=== PATIENT | female | born 1995 | race Asian ===

== ENCOUNTER 2016-12-12 16:26 | Emergency (ER) | payer OTHER ==
[2016-12-12] MEDS ORDERED: NS 1,000 ML IV ONE (16:31)
--- NOTE | 2016-12-12 16:34 | EDPHY ---
H & P Time Seen by Provider: 12/12/16 16:31 HPI/ROS: Chief complaint. Status epilepticus HPI. 19-year-old female here by EMS after being found in a dormitory bathroom actively seizing. Per EMS she has been seizing for at least 15 minutes. She apparently has a history of seizure disorder that is may be stress related. It is unknown whether she takes any medication for this. EMS was unable to establish an IV and gave her 5 mg of Valium IM before arrival. Patient has a laceration to the left side of her head. Blood sugar 116 per EMS ROS Unable as patient is currently nonverbal Past Medical/Surgical History: Unknown other than apparent stress related seizure disorder Social History: Unknown other than likely [employer] student Physical Exam: General Appearance: Arousable well-developed female nonverbal moderate distress vital signs are stable Eyes: Pupils are equal round reactive but upward gaze bilaterally. ENT, mouth without obvious evidence of trauma. Respiratory: There are no retractions, lungs are clear to auscultation. Cardiovascular: Regular rate and rhythm. Gastrointestinal: Abdomen is soft and nontender, no masses, bowel sounds normal. Neurological: Opens eyes to verbal stimuli Skin: Laceration left scalp Musculoskeletal: Cervical spine is immobilized per EMS Extremities symmetrical, full range of motion. Bruising and abrasions to the right lower extremity Psychiatric: Patient is nonverbal but not seizing Constitutional: Initial Vital Signs Temperature (C) 36.8 C 12/12/16 16:39 Heart Rate 132 H 12/12/16 16:39 Respiratory Rate 18 12/12/16 16:39 Blood Pressure 97/56 L 12/12/16 16:39 O2 Sat (%) 100 12/12/16 16:39 O2 Delivery Mode Nasal Cannula O2 (L/minute) 3 Allergies/Adverse Reactions: Unable to Assess Allergy (Unverified 12/12/16 16:39) Home Medications: Medication Instructions Recorded Unobtainable 12/12/16 Medical Decision Making - Diagnostics Imaging: CT head without contrast reviewed by me and discussed with Dr. Thomas shows no skull fracture intracranial bleeding. Cervical spine shows no acute injury X-rays of both tib fib bilaterally interpreted by me is normal Procedures: IV normal saline, monitor, seizure precautions ED Course/Re-evaluation: Serial evaluations patient is crying but not verbal. No further seizure activity 6:00 p.m. patient is awake and crying and still not really able to talk although she tells me she does not have any neck pain. The cervical collar is removed after her normal cervical CT with palpation of her neck and the patient nods that no it does not hurt gentle palpation as well as range of motion elicits no pain or discomfort and so the cervical spine precautions are discontinued by me Patient complains of pain to her right leg. We will x-ray the leg I consulted Dr. Montes and he sees the patient in the emergency department. Both of us also discussed the patient's care with Dr. Saeed neurologist. The concern is that the patient could be still seizing. She will be given a g of Keppra. At hospitalist and neurologist request we will arrange transfer to [facility] where she can have continuous EEG monitoring in the ICU I consulted and discussed case with Dr.Caitlyn Longo, neurologist at [facility]. She agrees with treatment plan and agrees to accept patient in transfer. The parents eventually come to the emergency department and tell me that the patient does have a seizure disorder and is on some kind of medication but they do not know what. The patient is re-evaluated again at this point and she still does not speak or really interact with her parents. They also tell me that patient has [employer] insurance I spoke with [facility] and they are fine with the plan of transferring the patient to [facility] Differential Diagnosis: Apparent status epilepticus in a patient with known seizure disorder. It is unclear the medication the patient takes. The concern is the patient is continuing to be in status and consultation by our neurologist here recommends continuous EEG monitoring which the neurologist at [facility] agrees with Critical Care Time: Critical care time exclusive procedures 45 minutes - Data Points Laboratory Results: Laboratory Results 12/12/16 16:37 12/12/16 16:37 12/12/16 12/12/16 12/12/16 18:55 17:00 16:37 WBC 8.25 10^3/uL (3.80-9.50) RBC 4.82 10^6/uL (4.18-5.33) Hgb 11.9 L g/dL (12.6-16.3) Hct 38.7 % (38.0-47.0) MCV 80.3 L fL (81.5-99.8) MCH 24.7 L pg (27.9-34.1) MCHC 30.7 L g/dL (32.4-36.7) RDW 15.5 H % (11.5-15.2) Plt Count 307 10^3/uL (150-400) MPV 11.8 H fL (8.7-11.7) Neut % (Auto) 49.3 % (39.3-74.2) Lymph % (Auto) 41.5 % (15.0-45.0) [place] % (Auto) 6.3 % (4.5-13.0) Eos % (Auto) 0.6 % (0.6-7.6) Baso % (Auto) 0.6 % (0.3-1.7) Nucleat RBC Rel Count 0.0 % (0.0-0.2) Absolute Neuts (auto) 4.07 10^3/uL (1.70-6.50) Absolute Lymphs (auto) 3.42 H 10^3/uL (1.00-3.00) Absolute Monos (auto) 0.52 10^3/uL (0.30-0.80) Absolute Eos (auto) 0.05 10^3/uL (0.03-0.40) Absolute Basos (auto) 0.05 10^3/uL (0.02-0.10) Absolute Nucleated RBC 0.00 10^3/uL (0-0.01) Immature Gran % 1.7 H % (0.0-1.1) Immature Gran # 0.14 H 10^3/uL (0.00-0.10) PT 15.7 H SEC REJ (12.0-15.0) INR 1.25 H REJ (0.83-1.16) APTT 25.0 SEC REJ (23.0-38.0) Sodium 143 mEq/L (134-144) Potassium 3.6 mEq/L (3.5-5.2) Chloride 108 mEq/L (97-110) Carbon Dioxide 21 L mEq/l (22-31) Anion Gap 14 mEq/L (8-16) BUN 9 mg/dL (7-23) Creatinine 0.8 mg/dL (0.6-1.0) Estimated GFR > 60 Glucose 98 mg/dL (70-100) Calcium 8.8 mg/dL (8.5-10.4) Beta HCG, Qual NEGATIVE Urine Opiates Screen NEGATIVE (NEGATIVE) Urine Barbiturates NEGATIVE (NEGATIVE) Ur Phencyclidine Scrn NEGATIVE (NEGATIVE) Ur Amphetamine Screen NEGATIVE (NEGATIVE) U Benzodiazepines Scrn NEGATIVE (NEGATIVE) Urine Cocaine Screen NEGATIVE (NEGATIVE) U Marijuana (THC) Screen NEGATIVE (NEGATIVE) Medications Given: Discontinued Medications Sodium Chloride (Ns) 1,000 mls @ 0 mls/hr IV EDNOW ONE PRN Reason: Wide Open Stop: 12/12/16 16:32 Last Admin: 12/12/16 16:46 Dose: 1,000 mls Levetiracetam 1,000 mg/ Sodium (Chloride) 110 mls @ 440 mls/hr IV EDNOW ONE Stop: 12/12/16 18:32 Last Admin: 12/12/16 18:55 Dose: 110 mls Lorazepam (Ativan Injection) 1 mg IVP EDNOW ONE Stop: 12/12/16 16:47 Last Admin: 12/12/16 16:47 Dose: 1 mg Departure - Departure Disposition: Acute Care Hospital [facility] Clinical Impression: Status epilepticus Condition: Fair Referrals: NONE *PRIMARY CARE P,. [Primary Care Provider] - As per Instructions
[2016-12-12] MEDS ORDERED: LORazepam 2 MG/ML INJ ONE (16:42)
[2016-12-12] MEDS ORDERED: LORazepam 2 MG/ML INJ IVP ONE (16:46)
[2016-12-12 16:48] LABS: % IMMATURE GRANULYOCYTES 1.7 % (0.0-1.1); ABSOLUTE IMMATURE GRANULOCYTES 0.14 10^3/uL (0.00-0.10); ADD DIFF? NO; ADD MORPH? NO; ADD SCAN? NO; ATYPICAL LYMPHOCYTE FLAG 0 (0-99); FRAGMENT RBC FLAG 20 (0-99); HEMATOCRIT 38.7 % (38.0-47.0); HEMOGLOBIN 11.9 g/dL (12.6-16.3); LEFT SHIFT FLG 10 (0-99); LIPEMIA HEMOLYSIS FLAG 80 (0-99); MEAN CELL HEMOGLOBIN 24.7 pg (27.9-34.1); MEAN CELL HEMOGLOBIN CONCENTR. 30.7 g/dL (32.4-36.7); MEAN CELL VOLUME 80.3 fL (81.5-99.8); MEAN PLATELET VOLUME 11.8 fL (8.7-11.7); PLATELET CLUMPS FLAG 0 (0-99); PLATELET COUNT 307 10^3/uL (150-400); RED BLOOD CELL COUNT 4.82 10^6/uL (4.18-5.33); RED CELL DISTRIBUTION WIDTH 15.5 % (11.5-15.2)
--- NOTE | 2016-12-12 17:00 | DX ---
Portable Chest on December 12, 2016 at 1642 hours Clinical Indications: Patient found down; no previous studies available for comparison. Findings: Frontal view (only) shows clear lungs and no masses. Heart size and pulmonary vessels blaze ear normal. Hilar and mediastinal contours appear normal. No evidence of pleural effusion. There is no pneumothorax. Osseous structures appear intact. Impression: Portable chest negative for acute abnormality.
[2016-12-12 17:02] LABS: ANION GAP 14 mEq/L (8-16); CALCIUM 8.8 mg/dL (8.5-10.4); CARBON DIOXIDE 21 mEq/l (22-31); CHLORIDE 108 mEq/L (97-110); CREATININE 0.8 mg/dL (0.6-1.0); GLOMERULAR FILTRATION RATE > 60; GLUCOSE 98 mg/dL (70-100); POTASSIUM 3.6 mEq/L (3.5-5.2); SODIUM 143 mEq/L (134-144)
[2016-12-12 17:21] LABS: INR 1.25 (0.83-1.16); PROTIME(PATIENT) 15.7 SEC (12.0-15.0)
--- NOTE | 2016-12-12 17:44 | CT ---
CT Brain (Without Contrast) at 1714 hours History: Seizures, altered mental status, found unconscious. Comparison: None. Technique: Axial computed tomographic images of the brain without contrast. Dose reduction technique s were utilized. Findings: Ventricles, cisterns, and sulci are normal without atrophy, hydrocephalus, midline shift/h erniation, or epidural/subdural hematomas. No acute intraparenchymal hemorrhage, definite infarct, or mass effect. Bone windows demonstrate no displaced fractures. Mild mucosal thickening posterior righ t maxillary sinus. Impression: 1. Normal CT brain without contrast. 2. Mild right maxillary sinus disease. 3.Consider MRI of the brain without and with contrast enhancement, if there is continued clinical con cern. Findings and recommendations discussed with Emergency Department physician, KRYSTYNA MCCRARY at 1740 h our, 12/12/2016. Final report concurs with initial preliminary interpretation.
--- NOTE | 2016-12-12 17:47 | CT ---
CT Scan of the Cervical Spine (Without Contrast) (With Multiplanar Reconstructions) at 1714 hours Clinical Indications: Seizures, altered mental status, found unconscious. Technique: Thinly collimated multidetector helical CT imaging of the cervical spine was reviewed in multiple planes. Multiplanar reconstructions reviewed on [employer] workstation and performed to better e valuate alignment. Dose reduction techniques were utilized. Findings: No definite acute cervical spine fracture. Normal cervical alignment. No cervical compress ion fractures. No odontoid fracture. Spinous processes appear intact. No bony central canal or neural foraminal stenosis. Impression: 1. No definite fracture. 2. No degenerative stenosis. 3.If there is persistent pain or neurological deficit, recommend MR cervical spine and consider flexi on and extension views, if clinically indicated. Findings and recommendations discussed with Emergency Department physician, Dr. Adrien Rainey at 1740 hours on December 12, 2016. Final report concurs with initial preliminary interpretation.
[2016-12-12] MEDS ORDERED: levETIRAcetam 1,000 MG in NS 100 ML IV ONE (18:18)
[2016-12-12 19:41] VITALS: RESP 18; TEMP 98.4; O2SAT 100
--- NOTE | 2016-12-12 19:46 | DX ---
Left tibia and fibula, 2 views History: Seizure, bilateral lower leg pain, trauma Comparison: None. Findings: No acute fracture or dislocation identified. No definite fracture of the left tibia or fibu la. Impression: No fracture of the left tibia or fibula.
--- NOTE | 2016-12-12 19:47 | DX ---
Right tibia and fibula, 2 views History: Seizure, bilateral lower leg pain, trauma Comparison: None. Findings: No acute fracture or dislocation identified. No evidence of fracture of the right tibia or fibula. No bone lesions. Impression: No fracture of the right tibia or fibula..
[2016-12-12 21:28] VITALS: BP 111/84; PULSE 93
== END 2016-12-12 21:38 | disposition short-term general hospital (02) ==
LOC: EDBD 16:26
DX: G40.901 Epilepsy, unspecified, not intractable, with status epilepticus (principal)
CPT/HCPCS: 80305; 96365; J1953